=== PATIENT | male | born 1955 | race Caucasian/White ===

== ENCOUNTER 2018-02-23 09:51 | Emergency (ER) | payer OTHER, SELFPAY ==
[2018-02-23 09:56] VITALS: BP 165/82; PULSE 105; RESP 20; TEMP 36.7; O2SAT 100
[2018-02-23 10:10] VITALS: PULSE 104; RESP 17; RESP 4; O2SAT 100
[2018-02-23] MEDS: Albuterol/Ipratropium 3 ML UPD VIAL (10:10)
[2018-02-23 10:33] VITALS: RESP 4; O2SAT 100
[2018-02-23] MEDS: Albuterol/Ipratropium 3 ML UPD VIAL UPD (10:33)
[2018-02-23 10:40] VITALS: PULSE 110; RESP 1; O2SAT 100
--- NOTE | 2018-02-23 10:42 | W.ED.GENAD ---
Discharge Plan Disposition Patient Disposition: HOME Discharge Details Chief Complaint: RespSymp Clinical Impression: Acute asthma exacerbation ED Provider: Doug Wright Home Meds and New Rx's Prescriptions: Continue Tachosil 5 mg PO BID RF: 0 Discharge Instructions Instructions: Asthma (ED) Additional Instructions: Use your albuterol inhaler as prescribed. Please contact your primary care physician to arrange follow-up. Return to the ER for any worsening or new concerning symptoms. Medical Decision Making MDM Narrative Medical decision making narrative: 62-year-old male with history of liver transplant, asthma, here with shortness of breath and wheeze that is consistent with prior asthma flare. Some wheeze on exam. Patient otherwise well-appearing. Afebrile. Saturating well in no respiratory distress. BP elevated - patient believes this is a result of anxiety. Suspect acute asthma exacerbation. Patient treated with DuoNeb ?2 and reassessed. Wheeze resolved and patient is feeling better. Patient does not have a spacer for his inhaler. I will provide this for him today. Patient provided usual and customary discharge instructions. He understands the importance of follow-up with his primary care physician. He also understands he should return immediately should he have any worsening or new concerning symptoms. HPI - General Adult General Date/Time Provider Initiated Documentation: 02/23/18 09:58. HPI Narrative: 62-year-old male with history of liver transplant, on immunosuppressive, asthma, here with chief complaint of shortness of breath and associated wheeze. Patient specifically notes he feels like his asthma is flaring up. Symptoms started today and have persisted. Exact same illness occurred when he was traveling in past to area with similar climate in past that required nebulized breathing treatment. Patient denies associated chest pain. No fever. No leg swelling. No abdominal pain. Related Data Home Medications Medication Instructions Recorded Confirmed Tachosil 5 mg PO BID 02/23/18 Allergies Allergy/AdvReac Type Severity Reaction Status Date / Time Penicillins Allergy Unverified 02/23/18 10:03 General Stated Complaint: RespSymp PEDRO: 4 PFSH Medical History Liver transplanted (Acute) Social History Smoking/Tobacco Use Status: Former Tobacco Use Exam Const General: cooperative, no acute distress, well developed, acute distress and not in distress Orientation: alert and awake Limitations: mental status not altered [facility] Head: normal to inspection and normocephalic Mouth: moist mucous membranes Throat: posterior oropharynx normal, uvula midline and no uvular edema Eyes General: appearance normal, both eyes and all related structures Conjunctivae: conjunctivae normal EOM: EOM intact bilaterally Neck Neck: trachea midline, supple and no lymphadenopathy noted Resp Effort & Inspection: normal respiratory effort, cough, not labored and no respiratory distress Auscultation: clear to auscultation bilaterally, no rales, no rhonchi and wheezes (faint bilateral ) Cardio Jugular venous pressure: no JVD Rate: regular rate Rhythm: regular rhythm Heart Sounds: S1 normal, S2 normal, no gallops, no murmurs and no rubs GI Palpation: soft and nontender Skin General skin exam: no rashes or lesions noted and dry skin Other: warm Neuro General: alert, awake and oriented x3 Extrem General: clubbing, cyanosis or edema noted Psych Appearance: grossly normal Affect: normal affect Course Vital Signs Temperature 36.7 C 02/23/18 09:56 Pulse 105 H 02/23/18 09:56 Respiratory Rate 20 02/23/18 09:56 Blood Pressure 165/82 H 02/23/18 09:56 Pulse Oximetry 100 02/23/18 09:56 Temperature 36.7 C 02/23/18 09:56 Pulse 104 H 02/23/18 10:10 Respiratory Rate 17 02/23/18 10:10 Blood Pressure 165/82 H 02/23/18 09:56 Pulse Oximetry 100 02/23/18 10:33
--- NOTE | 2018-02-23 10:45 | ED.GENADUL_ITS ---
Discharge Plan Disposition Patient Disposition: HOME Discharge Details Chief Complaint: RespSymp Clinical Impression: Acute asthma exacerbation ED Provider: Doug Wright Home Meds and New Rx's Prescriptions: Continue Tachosil 5 mg PO BID RF: 0 Discharge Instructions Instructions: Asthma (ED) Additional Instructions: Use your albuterol inhaler as prescribed. Please contact your primary care physician to arrange follow-up. Return to the ER for any worsening or new concerning symptoms. Medical Decision Making MDM Narrative Medical decision making narrative: 62-year-old male with history of liver transplant, asthma, here with shortness of breath and wheeze that is consistent with prior asthma flare. Some wheeze on exam. Patient otherwise well- appearing. Afebrile. Saturating well in no respiratory distress. BP elevated - patient believes this is a result of anxiety. Suspect acute asthma exacerbation. Patient treated with DuoNeb ?2 and reassessed. Wheeze resolved and patient is feeling better. Patient does not have a spacer for his inhaler. I will provide this for him today. Patient provided usual and customary discharge instructions. He understands the importance of follow-up with his primary care physician. He also understands he should return immediately should he have any worsening or new concerning symptoms. HPI - General Adult General Date/Time Provider Initiated Documentation: 02/23/18 09:58 . HPI Narrative: 62-year-old male with history of liver transplant, on immunosuppressive, asthma, here with chief complaint of shortness of breath and associated wheeze. Patient specifically notes he feels like his asthma is flaring up. Symptoms started today and have persisted. Exact same illness occurred when he was traveling in past to area with similar climate in past that required nebulized breathing treatment. Patient denies associated chest pain. No fever. No leg swelling. No abdominal pain. Related Data Home Medications Medication Instructions Recorded Confirmed Tachosil 5 mg PO BID 02/23/18 Allergies Allergy/AdvReac Type Severity Reaction Status Date / Time Penicillins Allergy Unverified 02/23/18 10:03 General Stated Complaint: RespSymp PEDRO: 4 PFSH Medical History Liver transplanted (Acute) Social History Smoking/Tobacco Use Status: Former Tobacco Use Exam Const General: cooperative, no acute distress, well developed, acute distress and not in distress Orientation: alert and awake Limitations: mental status not altered [facility] Head: normal to inspection and normocephalic Mouth: moist mucous membranes Throat: posterior oropharynx normal, uvula midline and no uvular edema Eyes General: appearance normal, both eyes and all related structures Conjunctivae: conjunctivae normal EOM: EOM intact bilaterally Neck Neck: trachea midline, supple and no lymphadenopathy noted Resp Effort & Inspection: normal respiratory effort, cough, not labored and no respiratory distress Auscultation: clear to auscultation bilaterally, no rales, no rhonchi and wheezes (faint bilateral ) Cardio Jugular venous pressure: no JVD Rate: regular rate Rhythm: regular rhythm Heart Sounds: S1 normal, S2 normal, no gallops, no murmurs and no rubs GI Palpation: soft and nontender Skin General skin exam: no rashes or lesions noted and dry skin Other: warm Neuro General: alert, awake and oriented x3 Extrem General: clubbing, cyanosis or edema noted Psych Appearance: grossly normal Affect: normal affect Course Vital Signs Temperature 36.7 C 02/23/18 09:56 Pulse 105 H 02/23/18 09:56 Respiratory Rate 20 02/23/18 09:56 Blood Pressure 165/82 H 02/23/18 09:56 Pulse Oximetry 100 02/23/18 09:56 Temperature 36.7 C 02/23/18 09:56 Pulse 104 H 02/23/18 10:10 Respiratory Rate 17 02/23/18 10:10 Blood Pressure 165/82 H 02/23/18 09:56 Pulse Oximetry 100 02/23/18 10:33
[2018-02-23 11:14] VITALS: BP 155/76; PULSE 84; RESP 16; TEMP 36.7; O2SAT 98
[2018-02-23] MEDS: Inhaler, Assist Device 1 EACH MC (11:26)
== END 2018-02-23 11:25 | disposition home or self-care (01) ==
PROVIDERS: Emergency Provider Student in an Organized Health Care Education/Training Program
DX: J45.901 Unspecified asthma with (acute) exacerbation (principal)
CPT/HCPCS: 94640; 99284; J7620

== ENCOUNTER 2018-02-26 15:33 | Emergency (ER) | payer OTHER, SELFPAY ==
[2018-02-26 15:37] VITALS: BP 168/95; PULSE 111; RESP 18; TEMP 36.7; O2SAT 94
[2018-02-26 16:11] VITALS: PULSE 111; RESP 18; RESP 4; O2SAT 94
[2018-02-26] MEDS: Albuterol/Ipratropium 3 ML UPD VIAL UPD (16:11)
--- NOTE | 2018-02-26 16:18 | ED.GENADUL_ITS ---
Discharge Plan Disposition Patient Disposition: HOME Condition: Stable Discharge Details Chief Complaint: RespSymp Clinical Impression: Acute lower respiratory tract infection Primary Care Provider: LALITHA WYMAN ED Provider: Austen Fortune Home Meds and New Rx's Prescriptions: New doxycycline hyclate 100 mg capsule 100 mg PO BID Qty: 14 RF: 0 Continue tacrolimus 5 mg Capsule 5 mg PO Q12H RF: 0 Discharge Instructions Instructions: Cold Symptoms (ED), Pneumonia (ED) Additional Instructions: Return immediately to the emergency department if you have any worsening of her symptoms, begin running high fever chills, or have any further concerns. Otherwise take your antibiotics until fully gone and follow-up with your primary care provider when he returned home. Referrals: NO,LOCAL [Primary Care Provider] - 1 week (Follow-up with your primary care provider next week when you return home for reassessment.) Discharge Data Discharge Date/Time-TO BE ENTERED AT DEPARTURE: 02/26/18 17:21 Medical Decision Making Patient presenting to the emergency department for chief complaint of cough. Patient is from [facility] and recently came to [facility] on Thursday was seen in the emergency department on Thursday for what felt like a flareup of his typical asthma. Patient was placed on Ventolin and does state that he has been using that every 4-6 hours as needed which has provided help. Over the past couple days he has started having a productive cough that is not improving and due to being away from home patient was concerned. Patient is a liver transplant patient and on Prograf. Patient does state over the past couple days he has noted some mild nasal congestion mild sore throat. Physical exam does show some left-sided expiratory wheezing that mildly clear with coughing, regular rate and rhythm and normal S1-S2, mildly erythematous posterior pharynx and subjective nasal congestion heard during exam otherwise no lymphadenopathy, no fever no chills, and patient otherwise stable in no acute distress. Plan to give patient DuoNeb and reassess the lungs along with performing radiological imaging of the chest. Differential diagnosis to include viral upper respiratory tract infection, asthma exacerbation due to viral illness, pneumonia. There are nebulized breathing treatment was given patient lungs were reassessed and patient states improvement of symptoms and patient has completely clear lung sounds with full expansion and no abnormalities noted. Review of radiological imaging shows area of concern in the left lower lung that appears like a very slight patchy infiltrate. Radiologist interpretation of imaging shows no acute cardiopulmonary disease, COPD changes, and indeterminate compression fractures. Did discuss with patient history of any back injury and he does state that years ago he did suffer back injury and that those are not new findings. Given that there is a questionable area on my interpretation of the imaging I do feel that placing patient on antibiotics is prudent. Patient diagnosed with respiratory tract infection and informed to return immediately for any new or worsening symptoms, stay well hydrated, get plenty of rest. after discussion of diagnosis and plan of care patient states over the knees, or concerns at this time. Patient placed on doxycycline twice daily for 7 days. HPI General Mode of arrival: ambulatory . Date/Time Provider Initiated Documentation: 02/26/18 15:41 . Limitations to Documentation: no limitations . Information obtained by: patient, RN notes reviewed and old records reviewed . History of Present Illness 62 year old M presents to the emergency department with the chief complaint of cough, described as mild, with intensity rated at 4. Quality is described as aching (substernal), Patient started experiencing this day(s) (4) and it has been constant. Medication improves symptom(s), (ventolin- mild improvement ) No exacerbating factors reported . Patient notes no other symptoms.. Related Data Home Medications Medication Instructions Recorded Confirmed tacrolimus 5 mg PO Q12H 02/26/18 02/26/18 Previous Rx's Medication Instructions Recorded doxycycline hyclate 100 mg PO BID #14 cap 02/26/18 Allergies Allergy/AdvReac Type Severity Reaction Status Date / Time Penicillins Allergy Unverified 02/26/18 15:42 General Stated Complaint: RespSymp PEDRO: 4 Review of Systems Constitutional Denies body ache(s), Denies chills, Denies fatigue and Denies fever(s) ENT Reports nasal congestion and Reports sore throat Cardiovascular Denies chest pain, Denies leg edema and Reports dyspnea Respiratory Reports chest congestion, Reports cough, Denies hemoptysis, Reports dyspnea and Reports wheezing Gastrointestinal Denies abdominal pain, Denies diarrhea and Denies vomiting Genitourinary Denies dysuria Musculoskeletal Denies muscle cramps and Denies muscle weakness Endocrine Denies fatigue Allergic/Immunologic Reports wheezing PFSH Medical History Liver transplanted (Acute) Social History Smoking/Tobacco Use Status: Former Tobacco Use Exam Const General: cooperative, comfortable, no acute distress, well groomed and not diaphoretic Nutritional Appearance: thin Orientation: alert, awake and oriented x3 HENMT Ears: hearing grossly normal bilaterally and TM's normal bilaterally General nose exam: external nose normal Mouth: oral mucosae normal and moist mucous membranes Throat: posterior oropharynx normal Neck Neck: normal visual inspection, full ROM, no lymphadenopathy and no meningeal signs Resp Effort & Inspection: normal respiratory effort, able to speak in complete sentences, no audible wheezes and cough Quality of cough: dry Auscultation: wheezes (that clear with coughing) expiratory wheezes, left lower and left upper Cardio Rate: regular rate Rhythm: regular rhythm Heart Sounds: S1 normal, S2 normal, no gallops, no murmurs and no rubs Neuro General: alert, awake, oriented x3 and moves all extremities Extrem General: normal capillary refill, no clubbing, cyanosis or edema and normal gait Course Vital Signs Temperature 36.7 C 02/26/18 15:37 Pulse 111 H 02/26/18 15:37 Respiratory Rate 18 02/26/18 15:37 Blood Pressure 168/95 H 02/26/18 15:37 Pulse Oximetry 94 L 02/26/18 15:37 Temperature 36.7 C 02/26/18 15:37 Pulse 111 H 02/26/18 16:11 Respiratory Rate 18 02/26/18 16:11 Blood Pressure 168/95 H 02/26/18 15:37 Pulse Oximetry 94 L 02/26/18 16:11
[2018-02-26 16:26] VITALS: PULSE 100; RESP 1; RESP 18; O2SAT 98
--- NOTE | 2018-02-26 16:33 | DI.RAD_ITS ---
SYMPTOM/DIAGNOSIS: COUGH, WHEEZING PA AND LATERAL CHEST: No priors. Heart size and pulmonary vasculature are within normal limits. There is tortuosity of the thoracic aorta. There are increased lung markings in the left lingula. This may represent atelectasis or pneumonia. No effusions or pneumothoraces are identified. There is a mild left convex curvature of the lumbar spine. There are multiple compression fracture deformities seen in the lower thoracic and upper lumbar spine. The most prominent fractures are at T 11 with loss of approximately 50% of the height of the vertebral body and L 3, also with loss of approximately 50% of the height of the vertebral body. There is exaggeration of the kyphosis centered at T 11- 12. IMPRESSION: 1. Infiltrate seen in the left lingula. This may represent atelectasis or pneumonia. 2. Multiple thoracic and lumbar compression fracture deformities which are age indeterminate. If there are prior examinations for comparison, they may be submitted and an addendum will be issued.
--- NOTE | 2018-02-26 16:54 | DI.VRAD_ITS ---
EXAM: XR Chest, 2 Views EXAM DATE/TIME: 02/26/2018 4:09 PM CLINICAL HISTORY: 62 years old, male; Signs and symptoms; Cough; Patient HX: Productive cough, wheezing x1 day. TECHNIQUE: XR of the chest, 2 views. COMPARISON: No relevant prior studies available. FINDINGS: Lungs: COPD changes with hyperinflation. There are no pulmonary infiltrates or lung nodules. Pleural space: There is no evidence of pleural effusion or pneumothorax. Heart/Mediastinum: The cardiac silhouette is normal. Vasculature: Mildly tortuous thoracic aorta. Mediastinum otherwise unremarkable. Upper abdomen: Surgical clips in the upper abdomen. Surgical clip overlying the RIGHT medial hemidiaphragm. Bones/joints: There are compression fractures from T6-T12 and from L1-L3 vertebrae. T11 and L2 vertebral bodies are most compressed (approximately 5050% with anterior wedging). There is exaggeration of thoracic kyphosis centered at the T11 level. The compression fractures are age indeterminate. IMPRESSION: 1. No acute cardiopulmonary disease. 2. COPD changes. 3. Multiple age indeterminate compression fractures of the thoracic and lumbar spine. See above discussion. Comparison with previous chest imaging studies if available would be useful to confirm chronicity. Dictated and Authenticated by: Fidelina Arzola MD. Ordering:PACO GUEVARA MD
[2018-02-26] MEDS: Doxycycline Hyclate 100 MG CAP PO (17:22)
== END 2018-02-26 17:21 | disposition home or self-care (01) ==
PROVIDERS: Emergency Provider Nurse Practitioner Family
DX: J22 Unspecified acute lower respiratory infection (principal); Z79.4 Long term (current) use of insulin; Z79.899 Other long term (current) drug therapy
CPT/HCPCS: 94640; 99284; 71046; J7620